=== PATIENT | male | born 1940 | race Caucasian/White ===

== ENCOUNTER 2024-02-02 19:59 | Emergency (ER) | payer OTHER, SELFPAY ==
[2024-02-02 20:02] VITALS: BP 122/77
[2024-02-02] MEDS: NSS 1000 IV (20:14)
[2024-02-02 20:24] LABS: % Basophils 0.8 % (0-2); % Eosinophils 1.8 % (0-6); % Immature Granulocytes 0.4 % (0-0.5); % Lymphocytes 29.6 % (20.5-51.1); % Monocytes 8.5 % (1.7-9.3); % Neutrophils 58.9 % (42.2-75.2); Absolute Basophils 0.1 10^3/uL (0-0.2); Absolute Eosinophils 0.2 10^3/uL (0-0.7); Absolute Lymphocytes 3.1 10^3/uL (1.2-3.4); Absolute Monocytes 0.9 10^3/uL (0.1-0.6); Absolute Neutrophils 6.2 10^3/uL (1.4-6.5); Hemoglobin 13.3 g/dL (13.0-18.0); Mean Corpuscular Hgb 31.4 pg (27.0-31.0); Mean Corpuscular Volume 89.8 fL (80.0-94.0); Mean Platelet Volume 9.5 fL (7.4-10.4); Nucleated Red Blood Cells % 0 % (-); Platelet Count 200 10^3/uL (130-400); Red Blood Cell Count 4.23 10^6/uL (4.70-6.10); White Blood Cell Count 10.5 10^3/uL (4.8-10.8)
[2024-02-02] MEDS: ZOFRAN 4 MG IV (20:24)
[2024-02-02 20:41] LABS: ALT (SGPT) 22 U/L (0-50); AST (SGOT) 46 U/L (17-59); Albumin 4.4 g/dl (3.5-5.0); Alkaline Phosphatase 102 U/L (38-126); Blood Urea Nitrogen 22 mg/dl (9-20); Carbon Dioxide 18 mmol/L (22-30); Chloride 107 mmol/L (98-107); Estimated Creatinine Clearance 43 ml/min; Glucose 122 mg/dl (70-99); Potassium 5.8 mmol/L (3.5-5.1); Sodium 131 mmol/L (135-145); Total Bilirubin 1.3 mg/dl (0.2-1.3); Total Protein 7.6 g/dl (6.3-8.2); eGFR 46.19
--- NOTE | 2024-02-02 21:00 | EDRN ---
Patient feeling better at this time, patient updated on status as well
--- NOTE | 2024-02-02 21:02 | ED.GENMED ---
History of Present Illness
General
Chief Complaint: Fainting/Passed Out
Source: patient and family
Exam Limitations: none
Time Seen by Provider: 02/02/24 20:15
Nursing documentation reviewed up to this point in time: agreed with
Travel History
Have you had any contact with someone who has COVID-19?: No
Do you have any symptoms of coronavirus? Fever > 100 degrees, chills, cough, shortness of breath, sore throat, loss of taste or smell, muscle aches, or headache?: No
History of Present Illness
History of Present Illness:
83-year-old male with a past medical history of hypertension, hyperlipidemia, pulmonary fibrosis who presents to the emergency department for evaluation after syncopal event. Patient reports that he was at a spiritism function and began to feel
lightheaded and clammy. Sat down in the chair and apparently had a witnessed syncopal episode. EMS called to bring her to the hospital. Patient does admit that he was out doing yard work all day and has not really had very much to eat or drink
today and believes he was likely dehydrated. He had a similar episode in August also in the setting of poor hydration at the time. He did not have any associated chest pain or shortness of breath. Did not have any associated headache. No
abdominal pain or flank pain. He did have some nausea initially and this has resolved here (he did receive some Zofran in triage). He denies any complaints at the time of my assessment. He denies any known cardiac history but did see
Clif for cardiac clearance in the past�had a nuclear stress test in March 2023 which was essentially unremarkable. Echocardiogram done in 2021 showed no significant valvular disease and reasonable ejection fraction.
Review of Systems
Review of Systems
All Other Systems: ROS reviewed and negative except as documented in HPI and ROS
Constitutional: Denies fever
Respiratory: Denies trouble breathing
Cardiac: Reports syncope; Denies chest pain or palpitations
ABD/GI: Denies abdominal pain, nausea or vomiting
: Denies flank pain
Musculoskeletal: Denies neck pain or back pain
Neurological: Denies headache, weakness or numbness
Phy Exam
Physical Exam
Physical Exam:
General: Awake, alert; no acute distress
Head: Normocephalic, atraumatic
Eyes: Conjunctiva normal, EOMI, pupils equal round and reactive to light bilaterally
Throat: Airway intact, handling secretions
Neck: Trachea midline, supple without meningismus
Lungs: Clear to auscultation bilaterally, no wheezing, rales, rhonchi
Heart: Regular rate and rhythm, no murmurs, gallops, or rubs appreciated
Abd: Soft, non distended, nontender, no abdominal masses
Neuro: Cranial nerves grossly intact, speech fluid, no gross motor or sensory deficits
Extremities: No edema in extremities, warm and well-perfused
Scores
Heart Failure Risk
Heart Failure Risk Score: Not Applicable
Heart Score for Chest Pain Patients
STEMI patient?: Not applicable
Withdrawal Assessment of Alcohol
Withdrawal Assessment Completed?: Not applicable
Course
Orders/Labs/Results
Orders:
Orders
02/02/24 20:00
Electrocardiogram (*1) Urgent
Reason for Study: Syncope
Cardiac Monitoring- Treatment ONCE
EKG- Treatment ONCE
02/02/24 20:13
CMP [Comprehensive Metabolic Panel] Urgent
Complete Blood Count/With Diff Urgent
02/02/24 20:14
0.9% Sodium Chloride 1000 ml [Nss] 1,000 ml IV BOLUS
02/02/24 20:24
Ondansetron Injectable [Zofran] 4 mg .ROUTE .STK-MED ONE
Ondansetron Injectable [Zofran] 4 mg IV NOW STA
02/02/24 20:50
Troponin I Urgent
02/02/24 21:05
0.9% Sodium Chloride 500 ml [Nss] 500 ml IV BOLUS
02/02/24 21:30
Sterile Water For Inj [Sterile Water For Injection 1000 ml] 1,000 ml Sodium Bicarbonate 150 meq IV 250 mls/hr
02/02/24 23:28
Basic Metabolic Panel Urgent
Abnormal Lab Results
02/02/24 02/02/24
20:13 23:28
RBC 4.23 L 10^6/uL
(4.70-6.10)
Hct 38.0 L %
(39.0-52.0)
MCH 31.4 H pg
(27.0-31.0)
Absolute Monos (auto) 0.9 H 10^3/uL
(0.1-0.6)
Sodium 131 L mmol/L
(135-145)
Potassium 5.8 H mmol/L
(3.5-5.1)
Carbon Dioxide 18 L mmol/L
(22-30)
BUN 22 H mg/dl 23 H mg/dl
(9-20) (9-20)
Creatinine 1.5 H mg/dL 1.5 H mg/dL
(0.7-1.3) (0.7-1.3)
Glucose 122 H mg/dl 144 H mg/dl
(70-99) (70-99)
02/02/24 20:13
02/02/24 23:28
Vital Signs
Initial and Last Documented VS:
Initial Vital Signs
Temp Pulse Resp BP Pulse Ox
36.4 C 56 10 122/77 97
02/02/24 20:02 02/02/24 20:02 02/02/24 20:02 02/02/24 20:02 02/02/24 20:02
Last Documented Vital Signs
Temp Pulse Resp BP Pulse Ox
36.4 C 56 10 122/77 97
02/02/24 20:02 02/02/24 20:02 02/02/24 20:02 02/02/24 20:02 02/02/24 20:02
MDM/Problems Addressed
Differential Diagnosis Includes:
Vasovagal syncope, orthostatic symptoms/postural syncope, dehydration, dysrhythmia
MDM/Problems Addressed:
83-year-old male presents for evaluation after syncopal event at spiritism function tonight�admits that he was doing yard work today and did not have essentially anything to eat or drink today. Had a similar episode related to dehydration in the past.
He did have some nausea initially but this resolved on my assessment, asymptomatic. He had no chest pain or breathlessness, no headache, no flank pain. EKG here shows sinus rhythm with no AV block, no delta wave, no Brugada, no signs of acute
ischemia. His vital signs are within acceptable range. Physical exam as above. Will plan to check labs including a CBC and a CMP. Will provide some IV fluids. Will monitor on telemetry. Reassess after the above.
Labs reviewed: CBC shows no anemia, no clinically significant abnormalities. CMP does show mild TRAE with a creatinine of 1.5 from a baseline of 0.8-1.3 in the past. He does have a mild hyperkalemia to 5.8, very slight metabolic acidosis to
18�suspect related to uremia in the setting of acute kidney injury and dehydration. Troponin was sent in triage despite patient denying any chest pain at any point in time this was undetectable. Clinical reassessment after IV fluids x 1 L he is
feeling much better although he is still very hungry. Family is getting him some food. I spoke with nephrology to discuss abnormal renal function and hyperkalemia�recommended additional fluids containing some sodium bicarbonate and repeat BMP to
reassess. Will order additional fluids with added bicarb and repeat BMP at that point. Continue to monitor.
Repeat BMP after fluid greatly improved sodium and potassium normalized, bicarb normalized, creatinine still slightly elevated. Patient is feeling very well eating a full meal and drinking fluids. He has no symptoms. Stable for discharge. Given
that this is his second syncopal event in the past year I did advise him to have a follow-up appoint with cardiology as an outpatient although it sounds like dehydration played a factor in both episodes. Advised him to be diligent about hydration
particularly when working outside. All questions answered.
*Pulse Oximetry
Patient hypoxic: no
*EKG
Interpreted by ED Provider?: Yes
Heart Rate: 57
Rate: bradycardiac
Rhythm: sinus
Lucas: normal axis
Interval: normal interval
QRS Pattern: normal QRS
Ischemia: no ischemia
*Critical Care Note
Total Time (30-74mins, 75-104mins- exclusive of procedures): Not Applicable
Data Reviewed
Review of Other/Old Records Reveals: Labs, Records and Testing
Source: patient, spouse and family
Patient Management
Discussion with other providers: [employer] (Discussed with nephrology)
ED Attending Note
-
Portions of this chart may have been created with voice recognition software.� Occasional wrong word or��sound alike� substitutions may have occurred due to the inherent limitations of voice recognition software.
Discharge Plan
Departure
Patient Disposition: Home (Routine Discharge)
Date of Disposition: 02/03/24
Time of Disposition: 00:02
Patient with high blood pressure during this ER visit?: No
Discharge Problem:
Syncope, Dehydration
Instructions: Dehydration, Adult (DC), Syncope (Fainting) (DC)
Prescriptions:
No Action
multivitamin Tablet
1 tab PO DAILY
ascorbic acid (vitamin C) [Vitamin C] 1,000 mg Tablet
1,000 mg PO DAILY
metoprolol succinate 50 mg Tablet Extended Release 24 Hr
50 mg PO HS
Metamucil Packet
1 packet PO DAILY
simvastatin 10 mg Tablet
10 mg PO QPM
amlodipine 5 mg Tablet
5 mg PO DAILY
aspirin [Baby Aspirin] 81 mg Tablet,Chewable
81 mg PO QPM
montelukast 10 mg Tablet
10 mg PO DAILY
cholecalciferol (vitamin D3) [Vitamin D3] 25 mcg (1,000 unit) Capsule
25 mcg PO DAILY
Zyrtec 10 mg Capsule
10 mg PO QPM
Cbd Gummies
1 tab PO HS
mupirocin 2 % ointment
1 applic topical BID Qty: 1 0RF
Referrals:
Nidhi Menezes DO [Active] - Call in 1-3 days for appt
Michael Isabel DO [Family Provider] -
Activity Restrictions/Additional Instructions:
Thank you for visiting the Emergency Department at [facility].
1. Please schedule a follow up appointment as directed. Call first thing tomorrow morning to make an appointment.
2. If indicated, please take your medications as instructed and indicated on discharge paperwork.
3. If any of your symptoms do not improve, or persist, or become more severe within 6-12 hours, please return to the emergency department for further care.
4. Please return to the emergency department if you develop a headache, neck pain/stiffness, fever greater than 100.4F, chest pain, shortness of breath, persistent nausea, vomiting, slurred speech, difficulty walking, numbness/tingling, weakness,
signs of infection or any other symptoms that are worrisome to you.
Please call [phone] if you have any questions.
Interventions
Interventions:
*Risk Screen - Suicide Last Done: 02/02/24 20:02
*General Assessment Last Done: 02/02/24 20:02
*Neglect/Abuse Screening Last Done: 02/02/24 20:02
ED- Fall Risk Assessment Last Done: 02/02/24 21:16
*ED COVID-19 Vaccine History Last Done: 02/02/24 20:02
ED- Cardiac Assessment Last Done: 02/02/24 21:16
ED- Neurological Assessment Last Done: 02/02/24 21:16
Discharge Date and Time
Print Language: HEBREW
[2024-02-02 21:19] LABS: Troponin I < 0.012 ng/ml
[2024-02-02 22:00] VITALS: BP 139/67
[2024-02-02] MEDS: SODIUM BICARBONATE 1150 MEQ IV (22:22)
[2024-02-02 23:00] VITALS: BP 110/60
[2024-02-02 23:58] LABS: Blood Urea Nitrogen 23 mg/dl (9-20); Calcium 9.6 mg/dl (8.4-10.2); Carbon Dioxide 25 mmol/L (22-30); Chloride 104 mmol/L (98-107); Estimated Creatinine Clearance 43 ml/min; Glucose 144 mg/dl (70-99); Potassium 4.9 mmol/L (3.5-5.1); Sodium 136 mmol/L (135-145); eGFR 46.19
[2024-02-03] VITALS: BP 124/67
--- NOTE | 2024-02-03 00:26 | EDRN ---
Patient was able to get dressed and ambulate out without difficulty or dizziness
== END 2024-02-03 00:27 | disposition home or self-care (01) ==
LOC: EMR 19:59
PROVIDERS: EMERGENCY PHYSICIAN Emergency Medicine; FAMILY PHYSICIAN Internal Medicine
DX: R55 Syncope and collapse (principal); E86.0 Dehydration; I10 Essential (primary) hypertension; E78.5 Hyperlipidemia, unspecified
CPT/HCPCS: 99284; 96374; 96361; 80048; 80053; 84484; 85025; 93005

== ENCOUNTER → 2024-03-05 10:05 | Outpatient (REF) | payer OTHER, SELFPAY ==
[2024-03-05 10:49] LABS: % Basophils 0.7 % (0-2); % Eosinophils 5.1 % (0-6); % Immature Granulocytes 0.6 % (0-0.5); % Lymphocytes 24.8 % (20.5-51.1); % Monocytes 9.3 % (1.7-9.3); % Neutrophils 59.5 % (42.2-75.2); Absolute Basophils 0.1 10^3/uL (0-0.2); Absolute Eosinophils 0.4 10^3/uL (0-0.7); Absolute Lymphocytes 1.8 10^3/uL (1.2-3.4); Absolute Monocytes 0.7 10^3/uL (0.1-0.6); Absolute Neutrophils 4.2 10^3/uL (1.4-6.5); Hematocrit 43.8 % (39.0-52.0); Hemoglobin 14.5 g/dL (13.0-18.0); Mean Corp Hgb Conc. 33.1 g/dL (33.0-37.0); Mean Corpuscular Hgb 31.7 pg (27.0-31.0); Mean Corpuscular Volume 95.8 fL (80.0-94.0); Mean Platelet Volume 9.7 fL (7.4-10.4); Nucleated Red Blood Cells % 0 % (-); Platelet Count 184 10^3/uL (130-400); Red Blood Cell Count 4.57 10^6/uL (4.70-6.10); Red Cell Dist. Width 13.2 % (11.5-14.5); White Blood Cell Count 7.1 10^3/uL (4.8-10.8)
[2024-03-05 10:56] LABS: Urine Albumin Negative (Neg - Trace); Urine Bilirubin Negative (Negative); Urine Character Clear (Clear); Urine Color Yellow; Urine Glucose Negative (Negative); Urine Ketone Negative (Negative); Urine Leukocyte Negative (Negative); Urine Nitrite Negative (Negative); Urine Occult Blood Negative (Negative); Urine Specific Gravity 1.015 (<1.030); Urine Urobilinogen Negative (Neg - 1+)
[2024-03-05 12:34] LABS: ALT (SGPT) 22 U/L (0-50); AST (SGOT) 30 U/L (17-59); Albumin 4.1 g/dl (3.5-5.0); Alkaline Phosphatase 112 U/L (38-126); Blood Urea Nitrogen 19 mg/dl (9-20); Calcium 10.2 mg/dl (8.4-10.2); Carbon Dioxide 28 mmol/L (22-30); Chloride 106 mmol/L (98-107); Glucose 89 mg/dl (70-99); HDL Cholesterol 48 mg/dl; LDL Cholesterol, Calculated 86 mg/dl; Potassium 5.7 mmol/L (3.5-5.1); Sodium 141 mmol/L (135-145); Total Bilirubin 0.5 mg/dl (0.2-1.3); Total Cholesterol 160 mg/dl (50-199); Total Protein 7.3 g/dl (6.3-8.2); Triglyceride 134 mg/dl (10-149); Uric Acid 7.6 mg/dl (3.5-8.5); Very Low Density Lipoprotein 26 mg/dl (0-30); eGFR 50.18
[2024-03-05 12:46] LABS: Free T4 1.03 ng/dl (0.78-2.19)
[2024-03-05 13:00] LABS: PSA, Total - Diagnostic 0.99 ng/ml (0.0-4.0); TSH 3.82 uIU/ml (0.47-4.68)
== END ==
LOC: REG 10:05
PROVIDERS: ATTENDING PHYSICIAN Internal Medicine
DX: I95.1 Orthostatic hypotension (principal); I10 Essential (primary) hypertension; N18.31 Chronic kidney disease, stage 3a; E78.2 Mixed hyperlipidemia; E66.9 Obesity, unspecified; J84.9 Interstitial pulmonary disease, unspecified; N52.9 Male erectile dysfunction, unspecified; Z96.652 Presence of left artificial knee joint; Z87.39 Personal history of other diseases of the musculoskeletal system and connective tissue; E04.1 Nontoxic single thyroid nodule; Z13.89 Encounter for screening for other disorder; Z86.010 Personal history of colon polyps
CPT/HCPCS: 80053; 80061; 81003; 84153; 84439; 84443; 84550; 85025

== ENCOUNTER → 2024-03-21 14:20 | Outpatient (REF) | payer OTHER, SELFPAY ==
[2024-03-21 15:28] LABS: Blood Urea Nitrogen 19 mg/dl (9-20); Carbon Dioxide 25 mmol/L (22-30); Chloride 107 mmol/L (98-107); Glucose 89 mg/dl (70-99); Magnesium 2.1 mg/dl (1.6-2.3); Potassium 5.1 mmol/L (3.5-5.1); Sodium 136 mmol/L (135-145); eGFR 50.18
== END ==
LOC: REG 14:20
PROVIDERS: ATTENDING PHYSICIAN Physician Assistant Medical; FAMILY PHYSICIAN Internal Medicine
DX: R55 Syncope and collapse (principal); E87.5 Hyperkalemia; N28.9 Disorder of kidney and ureter, unspecified
CPT/HCPCS: 36415; 80048; 83735

== ENCOUNTER → 2024-03-25 14:58 | Outpatient (REF) | payer OTHER, SELFPAY | LOC: HWRCS 14:58 | PROVIDERS: ATTENDING PHYSICIAN Physician Assistant Medical; FAMILY PHYSICIAN Internal Medicine | DX: R55 Syncope and collapse (principal); N28.9 Disorder of kidney and ureter, unspecified | CPT/HCPCS: 93306 ==

== ENCOUNTER → 2024-05-27 16:31 | Outpatient (REF) | payer OTHER, SELFPAY | LOC: RAD 16:31 | PROVIDERS: ATTENDING PHYSICIAN Internal Medicine | DX: M54.50 Low back pain, unspecified (principal) | CPT/HCPCS: 72110; 72200 ==

== ENCOUNTER → 2024-07-31 10:04 | Outpatient (REF) | payer OTHER, SELFPAY ==
[2024-07-31 10:51] LABS: % Basophils 0.7 % (0-2); % Eosinophils 6.4 % (0-6); % Immature Granulocytes 0.3 % (0-0.5); % Lymphocytes 28.5 % (20.5-51.1); % Monocytes 10.6 % (1.7-9.3); % Neutrophils 53.5 % (42.2-75.2); Absolute Eosinophils 0.4 10^3/uL (0-0.7); Absolute Lymphocytes 1.6 10^3/uL (1.2-3.4); Absolute Monocytes 0.6 10^3/uL (0.1-0.6); Absolute Neutrophils 3.1 10^3/uL (1.4-6.5); Hematocrit 39.7 % (39.0-52.0); Hemoglobin 13.3 g/dL (13.0-18.0); Mean Corp Hgb Conc. 33.5 g/dL (33.0-37.0); Mean Corpuscular Hgb 30.6 pg (27.0-31.0); Mean Corpuscular Volume 91.5 fL (80.0-94.0); Mean Platelet Volume 10.1 fL (7.4-10.4); Nucleated Red Blood Cells % 0 % (-); Platelet Count 187 10^3/uL (130-400); Red Blood Cell Count 4.34 10^6/uL (4.70-6.10); Red Cell Dist. Width 13.5 % (11.5-14.5); White Blood Cell Count 5.8 10^3/uL (4.8-10.8)
[2024-07-31 11:00] LABS: INR 0.97; PT 12.8 Sec (11.4-14.6)
[2024-07-31 11:30] LABS: ALT (SGPT) 20 U/L (0-50); AST (SGOT) 24 U/L (17-59); Alkaline Phosphatase 99 U/L (38-126); Blood Urea Nitrogen 23 mg/dl (9-20); Calcium 9.6 mg/dl (8.4-10.2); Carbon Dioxide 24 mmol/L (22-30); Chloride 108 mmol/L (98-107); Glucose 86 mg/dl (70-99); HDL Cholesterol 47 mg/dl; LDL Cholesterol, Calculated 89 mg/dl; Potassium 5.2 mmol/L (3.5-5.1); Sodium 143 mmol/L (135-145); Total Bilirubin 0.5 mg/dl (0.2-1.3); Total Cholesterol 152 mg/dl (50-199); Total Protein 6.8 g/dl (6.3-8.2); Triglyceride 83 mg/dl (10-149); Very Low Density Lipoprotein 16 mg/dl (0-30); eGFR 54.85
[2024-07-31 12:09] LABS: PSA, Total - Screen 0.93 ng/ml (0.0-4.0)
== END ==
LOC: REG 10:04
PROVIDERS: ATTENDING PHYSICIAN Internal Medicine
DX: J84.9 Interstitial pulmonary disease, unspecified (principal); Z12.5 Encounter for screening for malignant neoplasm of prostate; I10 Essential (primary) hypertension; E78.2 Mixed hyperlipidemia
CPT/HCPCS: 36415; 80053; 80061; 85025; 85610; G0103

== ENCOUNTER → 2024-12-05 08:49 | Outpatient (REF) | payer OTHER, SELFPAY | LOC: HWRAD 08:49 | PROVIDERS: ATTENDING PHYSICIAN Internal Medicine Critical Care Medicine; FAMILY PHYSICIAN Internal Medicine | DX: J84.9 Interstitial pulmonary disease, unspecified (principal) | CPT/HCPCS: 71250 ==

== ENCOUNTER → 2025-01-23 13:30 | Outpatient (REF) | payer OTHER, SELFPAY ==
[2025-01-23 14:49] LABS: % Basophils 0.7 % (0-2); % Eosinophils 2.2 % (0-6); % Immature Granulocytes 0.3 % (0-0.5); % Lymphocytes 25.4 % (20.5-51.1); % Monocytes 10.5 % (1.7-9.3); % Neutrophils 60.9 % (42.2-75.2); Absolute Basophils 0.1 10^3/uL (0-0.2); Absolute Eosinophils 0.2 10^3/uL (0-0.7); Absolute Lymphocytes 2.3 10^3/uL (1.2-3.4); Absolute Neutrophils 5.5 10^3/uL (1.4-6.5); Hematocrit 41.3 % (39.0-52.0); Hemoglobin 14.1 g/dL (13.0-18.0); Mean Corp Hgb Conc. 34.1 g/dL (33.0-37.0); Mean Corpuscular Hgb 32.6 pg (27.0-31.0); Mean Corpuscular Volume 95.6 fL (80.0-94.0); Mean Platelet Volume 9.8 fL (7.4-10.4); Nucleated Red Blood Cells % 0 % (-); Platelet Count 191 10^3/uL (130-400); Red Blood Cell Count 4.32 10^6/uL (4.70-6.10); Red Cell Dist. Width 12.9 % (11.5-14.5); White Blood Cell Count 9.1 10^3/uL (4.8-10.8)
[2025-01-23 15:33] LABS: ALT (SGPT) 21 U/L (0-50); AST (SGOT) 25 U/L (17-59); Albumin 4.4 g/dl (3.5-5.0); Alkaline Phosphatase 100 U/L (38-126); Blood Urea Nitrogen 24 mg/dl (9-20); Carbon Dioxide 23 mmol/L (22-30); Chloride 105 mmol/L (98-107); Glucose 95 mg/dl (70-99); Lipase 57 U/L (23-300); Potassium 5.5 mmol/L (3.5-5.1); Sodium 139 mmol/L (135-145); Total Bilirubin 0.7 mg/dl (0.2-1.3); Total Protein 7.1 g/dl (6.3-8.2); eGFR 49.87
== END ==
LOC: REG 13:30
PROVIDERS: ATTENDING PHYSICIAN Nurse Practitioner Family; OTHER PHYSICIAN Internal Medicine Cardiovascular Disease
DX: R10.13 Epigastric pain (principal); R06.02 Shortness of breath
CPT/HCPCS: 36415; 80053; 83690; 85025; 93005

== ENCOUNTER → 2025-04-13 12:10 | Outpatient (REF) | payer OTHER, SELFPAY | LOC: HWRAD 12:10 | PROVIDERS: ATTENDING PHYSICIAN Internal Medicine | DX: R05.8 Other specified cough (principal) | CPT/HCPCS: 71046 ==

== ENCOUNTER → 2025-06-09 08:56 | Outpatient (REF) | payer OTHER, SELFPAY | LOC: HWRAD 08:56 | PROVIDERS: ATTENDING PHYSICIAN Internal Medicine Critical Care Medicine; FAMILY PHYSICIAN Internal Medicine | DX: R05.1 Acute cough (principal) | CPT/HCPCS: 70486 ==

== ENCOUNTER → 2025-09-09 09:29 | Outpatient (REF) | payer OTHER, SELFPAY ==
[2025-09-09 10:55] LABS: Hematocrit 42.9 % (39.0-52.0); Hemoglobin 13.8 g/dL (13.0-18.0); Mean Corp Hgb Conc. 32.2 g/dL (33.0-37.0); Mean Corpuscular Volume 96.2 fL (80.0-94.0); Nucleated Red Blood Cells % 0 % (-); Platelet Count 178 10^3/uL (130-400); Red Cell Dist. Width 13.4 % (11.5-14.5)
[2025-09-09 11:24] LABS: ALT (SGPT) 19 U/L (0-50); AST (SGOT) 25 U/L (17-59); Albumin 3.9 g/dl (3.5-5.0); Alkaline Phosphatase 99 U/L (38-126); Blood Urea Nitrogen 23 mg/dl (9-20); Calcium 9.6 mg/dl (8.4-10.2); Carbon Dioxide 25 mmol/L (22-30); Chloride 109 mmol/L (98-107); Glucose 88 mg/dl (70-99); HDL Cholesterol 49 mg/dl; LDL Cholesterol, Calculated 79 mg/dl; Potassium 4.7 mmol/L (3.5-5.1); Sodium 138 mmol/L (135-145); Total Protein 7.0 g/dl (6.3-8.2); Uric Acid 7.8 mg/dl (3.5-8.5); Very Low Density Lipoprotein 23 mg/dl (0-30); eGFR 45.91
[2025-09-09 11:48] LABS: PSA, Total - Screen 2.04 ng/ml (0.0-4.0)
== END ==
LOC: REG 09:29
PROVIDERS: ATTENDING PHYSICIAN Internal Medicine
DX: Z12.5 Encounter for screening for malignant neoplasm of prostate (principal); E78.2 Mixed hyperlipidemia; I10 Essential (primary) hypertension; Z87.39 Personal history of other diseases of the musculoskeletal system and connective tissue
CPT/HCPCS: 36415; 80053; 80061; 84550; 85025; G0103